=== PATIENT | male | born 1985 | race Two or more races ===

== ENCOUNTER 2019-05-22 10:12 | Emergency (ER) | payer OTHER ==
[~2019-05-22] VITALS: Ht 177.8 cm; Wt 110.0 kg
--- NOTE | 2019-05-22 11:06 | NUR ---
TEST WORKER: PT TO ED ROOM 29 FROM LOBBY IN NAD
--- NOTE | 2019-05-22 11:20 | NUR ---
ROOMED FROM TRIAGE ON MONITOR-VSS LEFT CHEST PAIN RAD TO LT ARM SINCE LAST NIGHT, DENIES CARDIAC HX, SEEN 2 WKS AGO FOR SAME APPEARS WELL BUT ANXIOUS UPDATED ON ESTIMATED POC
[2019-05-22] MEDS ORDERED: ASPIRIN 81 MG TABLET CHEW PO ONE (12:00)
[2019-05-22 12:13] LABS: BASOPHILS # (AUTO) 0.03 x10^3/uL (0-0.1); BASOPHILS % (AUTO) 0 % (0-1); EOSINOPHILS # (AUTO) 0.04 x10^3/uL (0-0.4); EOSINOPHILS % (AUTO) 1 % (1-7); LYMPHOCYTES # (AUTO) 2.12 x10^3/uL (1-3.4); LYMPHOCYTES % (AUTO) 30 % (22-44); MD NO; MEAN CORPUSCULAR HGB CONC 33.8 g/dL (33.2-36.2); MEAN CORPUSCULAR VOLUME 91.8 fL (81-97); MEAN PLATELET VOLUME 8.8 fL (7.4-10.4); MONOCYTES # (AUTO) 0.54 x10^3/uL (0.2-0.8); MONOCYTES % (AUTO) 8 % (2-9); NEUTROPHILS # (AUTO) 4.25 x10^3/uL (1.8-6.8); NEUTROPHILS % (AUTO) 61 % (42-75); PLATELET COUNT 229 x10^3/uL (130-400); RED CELL DISTRIBUTION WIDTH 12.4 % (9.4-14.8)
[2019-05-22 12:23] LABS: CHLORIDE 108 mmol/L (98-107)
[2019-05-22 12:35] LABS: ALBUMIN 4.4 g/dL (3.4-5.0); ANION GAP 8 mmol/L (5-15); CALCIUM 8.9 mg/dL (8.5-10.1); CREATININE 0.93 mg/dL (0.7-1.3); TROPONIN I < 0.015 ng/mL (0.000-0.045)
[2019-05-22 12:50] VITALS: BP 137/74
--- NOTE | 2019-05-22 12:50 | NUR ---
NO CHANGE IN EXAM: REMAINS WITH CHEST PAIN/ARM NUMBNESS VITALS STABLE PROVIDER ORDERES REVIEWED-TO D/C SHORTLY
== END 2019-05-22 13:26 | disposition home or self-care (01) ==
LOC: ED 11:30
DX: R07.89 Other chest pain (principal)
CPT/HCPCS: 36415; 71045; 80048; 82040; 84484; 85025; 93005; 99284